=== PATIENT | female | born 1995 | race Two or more races ===

== ENCOUNTER 2019-09-07 00:59 | Emergency (ER) | payer MEDICAID, OTHER ==
[~2019-09-07] VITALS: Ht 160 cm; Wt 86.2 kg
[2019-09-07 01:40] VITALS: BP 108/69
[2019-09-07] MEDS ORDERED: LIDOCAINE VISCOUS 2% UD 15 ML UDC ONE (02:14)
[2019-09-07] MEDS ORDERED: MAG HYDROX/AL HYDROX/SIMETH 30 ML UDC ONE (02:14)
[2019-09-07] MEDS ORDERED: DICYCLOMINE HCL 10 MG/5 ML UDC ONE (02:15)
[2019-09-07] MEDS ORDERED: LIDOCAINE VISCOUS 2% UD 15 ML UDC MM ONE (02:30)
[2019-09-07] MEDS ORDERED: MAG HYDROX/AL HYDROX/SIMETH 30 ML UDC PO ONE (02:30)
[2019-09-07] MEDS ORDERED: DICYCLOMINE HCL 10 MG/5 ML UDC PO ONE (02:30)
== END 2019-09-07 02:45 | disposition home or self-care (01) ==
LOC: ER 01:01
DX: R12 Heartburn (principal); Z98.890 Other specified postprocedural states